=== PATIENT | male | born 1960 | race American Indian/Alaskan Native ===

== ENCOUNTER 2020-04-17 11:36 | Emergency (ER) | payer OTHER ==
[2020-04-17 11:50] VITALS: BP 178/110
--- NOTE | 2020-04-17 13:58 | XRay Report ---
LEFT SHOULDER 3 VIEWS INDICATION / CLINICAL INFORMATION: shoulder pain s/p fall. COMPARISON: None available. FINDINGS: BONES/JOINT(S): No acute fracture or subluxation. Mild DJD in the AC joint. No focal bone lesions. SOFT TISSUES: No significant abnormality. ADDITIONAL FINDINGS: None. Signer Name: Kaden Abad MD Signed: 04/17/2020 1:53 PM Workstation Name: [id number]
--- NOTE | 2020-04-17 14:09 | Emergency Department Report ---
ED Upper Extremity Inj HPI - General Chief Complaint: Shoulder Injury Stated Complaint: SHOULDER PAINS Time Seen by Provider: 04/17/20 12:19 Source: patient Mode of arrival: Ambulatory Limitations: No Limitations - History of Present Illness Initial Comments: This is a 59-year-old male nontoxic, well nourished in appearance, no acute signs of distress presents to the ED with c/o of left shoulder pain s/p fall 10 days ago. Patient denies any other trauma or injuries. Deneis any neck or back pains. Denies any LOC. Denies decreased ROM, joint swelling, redness, or abnormal gait. Denies any fever, chills, nausea, vomiting, headache, stiff neck, chest pain or shortness of breath. Patient denies any numbness or tingling. Denies any allergies. MD Complaint: Injury to:: left, shoulder -: days(s) (10) Other Extremity Injury: Shoulder: Left Other Injuries: none Severity scale (0 -10): 8 Improves With: immobilization Worsens With: movement of extremity Context: fall Associated Symptoms: denies other symptoms. denies: weakness, numbness, neck pain, suspects foreign body, nausea/vomiting, heard/felt popping sensat - Related Data Previous Rx's Medication Instructions Recorded Last Taken Type Naproxen 500 mg PO Q12H PRN #12 tablet 04/17/20 Unknown Rx Allergies Allergy/AdvReac Type Severity Reaction Status Date / Time No Known Allergies Allergy Unverified 04/17/20 11:49 ED Review of Systems ROS: Stated complaint: SHOULDER PAINS Other details as noted in HPI Constitutional: denies: chills, fever Eyes: denies: eye pain, eye discharge, vision change ENT: denies: ear pain, throat pain Respiratory: denies: cough, shortness of breath, wheezing Cardiovascular: denies: chest pain, palpitations Endocrine: no symptoms reported Gastrointestinal: denies: abdominal pain, nausea, diarrhea Genitourinary: denies: urgency, dysuria Musculoskeletal: denies: back pain, joint swelling, arthralgia Skin: denies: rash, lesions Neurological: denies: headache, weakness, paresthesias Psychiatric: denies: anxiety, depression Hematological/Lymphatic: denies: easy bleeding, easy bruising ED Past Medical Hx - Past Medical History Previous Medical History?: Yes Hx Hypertension: Yes - Surgical History Past Surgical History?: No - Social History Smoking Status: Current Every Day Smoker Substance Use Type: None - Medications Home Medications: Home Medications Medication Instructions Recorded Confirmed Last Taken Type Naproxen 500 mg PO Q12H PRN #12 tablet 04/17/20 Unknown Rx ED Physical Exam - General Limitations: No Limitations General appearance: alert, in no apparent distress - Head Head exam: Present: atraumatic, normocephalic - Eye Eye exam: Present: normal appearance - Neck Neck exam: Present: normal inspection, full ROM. Absent: tenderness, meningismus, lymphadenopathy - Respiratory Respiratory exam: Absent: respiratory distress - Cardiovascular Cardiovascular Exam: Present: regular rate - Extremities Exam Extremities exam: Present: normal inspection, full ROM, tenderness, normal capillary refill. Absent: joint swelling - Expanded Upper Extremity Exam Left General: Present: normal inspection Shoulder Exam: Present: normal inspection, full ROM, tenderness. Absent: swelling, abrasion, laceration, ecchymosis, deformity, crepidus, dislocation, erythema, tenderness over AC joint Upper Arm exam: Present: normal inspection, full ROM. Absent: tenderness, swelling Elbow exam: Present: normal inspection, full ROM. Absent: tenderness, swelling Forearm Wrist exam: Present: normal inspection, full ROM. Absent: tenderness, swelling Hand Wrist exam: Present: normal inspection, full ROM. Absent: tenderness, swelling Vascular: Present: normal capillary refill. Absent: vascular compromise (neurovascular intact) - Back Exam Back exam: Present: normal inspection, full ROM. Absent: tenderness, CVA tenderness (R), CVA tenderness (L), muscle spasm, paraspinal tenderness, vertebral tenderness, rash noted - Neurological Exam Neurological exam: Present: alert, oriented X3, normal gait - Psychiatric Psychiatric exam: Present: normal affect, normal mood - Skin Skin exam: Present: warm, dry, intact, normal color. Absent: rash ED Course Vital Signs 04/17/20 11:47 Temperature 98.0 F Pulse Rate 100 H Respiratory 18 Rate Blood Pressure 178/110 O2 Sat by Pulse 98 Oximetry - Reevaluation(s) Reevaluation #1: 04/17/20 14:10 Patient is speaking in full sentences with no signs of distress noted. ED Medical Decision Making - Medical Decision Making This is a 59-year-old male that presents with left shoulder strain. Patient is stable and was examined by me. Patient is notified of the xray results with on question noted by the patient. Pt received Shoulder sling. No joint effusion, no redness, no decreased ROM. Patient was instructed to Follow-up with a orthopedic doctor in 3-5 days or if symptoms worsen and continue return to emergency room as soon as possible. At time of discharge, the patient does not seem toxic or ill in appearance. No acute signs of distress noted. Patient agrees to discharge treatment plan of care. No further questions noted by the patient. Critical care attestation.: If time is entered above; I have spent that time in minutes in the direct care of this critically ill patient, excluding procedure time. ED Disposition Clinical Impression: Left shoulder strain Qualifiers: Encounter type: initial encounter Qualified Code(s): S46.912A - Strain of unspecified muscle, fascia and tendon at shoulder and upper arm level, left arm, initial encounter Disposition: TO HOME OR SELFCARE Is pt being admited?: No Does the pt Need Aspirin: No Condition: Stable Instructions: Shoulder Pain, RICE Therapy for Routine Care of Injuries, [id number] Additional Instructions: Follow-up with a orthopedic doctor in 3-5 days or if symptoms worsen and continue return to emergency room as soon as possible. No physical activity until cleared by orthopedic doctor. Prescriptions: Naproxen 500 mg PO Q12H PRN #12 tablet PRN Reason: Pain , Severe (7-10) Referrals: PRIMARY CARE, [Referring] - 3-5 Days ANDRES GRIFFIN MD [Staff Physician] - 3-5 Days Forms: Work/School Release Form(ED)
== END 2020-04-17 14:33 | disposition home or self-care (01) ==
LOC: ED 11:36
DX: S46.912A Strain of unspecified muscle, fascia and tendon at shoulder and upper arm level, left arm, initial encounter (principal); I10 Essential (primary) hypertension; F17.200 Nicotine dependence, unspecified, uncomplicated; X58.XXXA Exposure to other specified factors, initial encounter; Y93.89 Activity, other specified; Y92.89 Other specified places as the place of occurrence of the external cause; Y99.8 Other external cause status
CPT/HCPCS: 99283

== ENCOUNTER 2020-12-21 10:48 | Emergency (ER) | payer SELFPAY ==
--- NOTE | 2020-12-21 12:43 | Ultrasound Report ---
ULTRASOUND SCROTUM INDICATION: Unspecified testicular pain. Left scrotal enlargement. Palpable abnormality along the right groin. COMPARISON None available. FINDINGS: RIGHT TESTICLE: 4.3 x 1.8 x 2.8 cm. Normal echogenicity. Abnormally increased color flow is seen thro ughout the right testicle. No solid or cystic lesions. RIGHT EPIDIDYMIS: Enlarged and heterogeneous with abnormally increased color flow. No other significa nt abnormality. LEFT TESTICLE: 3.3 x 2.1 x 2.7 cm. Normal echogenicity. Normal color flow. No solid or cystic lesions . LEFT EPIDIDYMIS: Enlarged and heterogeneous with abnormally increased color flow. No other significan t abnormality. HYDROCELE: None seen. VARICOCELE: Varicoceles are noted bilaterally measuring up to 2.5 cm on the right and 3.5 cm on the l eft. ADDITIONAL FINDINGS: None. IMPRESSION: 1. Findings compatible with right epididymoorchitis and left epididymitis. 2. Bilateral varicoceles, left greater than right. Signer Name: Ephraim Milner MD Signed: 12/21/2020 12:38 PM Workstation Name: [id number]
[2020-12-21 12:58] LABS: Bacteria,Urine 4+ /HPF (Negative); Bilirubin,Urine NEG (Negative); Blood,Urine SM (Negative); Color,Urine Yellow (Yellow); Mucus,Urine 1+ /HPF; Protein,Urine <15 mg/dL mg/dL (Negative)
[2020-12-21] MEDS ORDERED: KETOROLAC 60 MG/2 ML INJ ONE (14:02)
[2020-12-21] MEDS ORDERED: LIDOCAINE-MPF (1%) 10 MG/1 ML VIAL 5 ML INFILTRATI ONE (14:40)
--- NOTE | 2020-12-21 14:47 | Emergency Department Report ---
<PHILLIP WEBB - Last Filed: 12/21/20 14:41> ED General Adult HPI - General Chief complaint: Urogenital-Male Stated complaint: SHOULDER INJURY Time Seen by Provider: 12/21/20 13:06 Source: patient Mode of arrival: Ambulatory Limitations: No Limitations - History of Present Illness Initial comments: 60-year-old -Burkin[place] male patient with history of asthma presents with complaints of sudden onset of left testicular pain and swelling with swollen lymph nodes in his groin area x2 days. He denies any dysuria/hematuria/urinary frequency, penile discharge, penile pain, or lesions. No abdominal pain per patient or fever/chills/sweats. He reports he is sexually active with one partner, his , however he does admit to anal sex with his . He denies any promiscuous sexual activity. Patient rates his current pain is 8/10 in severity. -: Sudden - Related Data Previous Rx's Medication Instructions Recorded Last Taken Type Naproxen 500 mg PO Q12H PRN #12 tablet 04/17/20 Unknown Rx Acetaminophen/Codeine [Tylenol 1 tab PO Q6H PRN #6 tab 12/21/20 Unknown Rx /Codeine # 3 tab] Ibuprofen [Motrin 800 MG tab] 800 mg PO Q8HR PRN #20 tablet 12/21/20 Unknown Rx levoFLOXacin [Levaquin TAB] 500 mg PO QDAY #10 tablet 12/21/20 Unknown Rx Allergies Allergy/AdvReac Type Severity Reaction Status Date / Time No Known Allergies Allergy Unverified 04/17/20 11:49 ED Review of Systems Constitutional: denies: chills, diaphoresis, fever, malaise, weakness Gastrointestinal: denies: abdominal pain Genitourinary: testicular pain. denies: urgency, dysuria, frequency, hematuria, discharge Musculoskeletal: denies: joint swelling, arthralgia ED Past Medical Hx - Past Medical History Previous Medical History?: Yes Hx Hypertension: Yes - Surgical History Past Surgical History?: Yes Hx Appendectomy: Yes - Social History Smoking Status: Current Every Day Smoker Substance Use Type: None - Medications Home Medications: Home Medications Medication Instructions Recorded Confirmed Last Taken Type Naproxen 500 mg PO Q12H PRN #12 tablet 04/17/20 Unknown Rx Acetaminophen/Codeine [Tylenol 1 tab PO Q6H PRN #6 tab 12/21/20 Unknown Rx /Codeine # 3 tab] Ibuprofen [Motrin 800 MG tab] 800 mg PO Q8HR PRN #20 tablet 12/21/20 Unknown Rx levoFLOXacin [Levaquin TAB] 500 mg PO QDAY #10 tablet 12/21/20 Unknown Rx ED Physical Exam - General Limitations: No Limitations General appearance: alert, in no apparent distress - Head Head exam: Present: atraumatic, normocephalic - Eye Eye exam: Present: normal appearance - Respiratory Respiratory exam: Absent: respiratory distress - Cardiovascular Cardiovascular Exam: Present: regular rate, normal rhythm - GI/Abdominal GI/Abdominal exam: Present: soft, normal bowel sounds. Absent: distended, tenderness, guarding, rebound, rigid - exam: Present: testicular tenderness (Left-sided), scrotal swelling (Left- sided, no erythema noted). Absent: other (No significant groin lymphadenopathy noted) - Extremities Exam Extremities exam: Present: full ROM. Absent: joint swelling - Back Exam Back exam: Present: normal inspection. Absent: CVA tenderness (R), CVA tenderness (L) - Neurological Exam Neurological exam: Present: alert, oriented X3 - Psychiatric Psychiatric exam: Present: normal affect, normal mood - Skin Skin exam: Present: warm, dry, intact, normal color. Absent: rash ED Medical Decision Making - Radiology Data Radiology results: report reviewed ULTRASOUND SCROTUM INDICATION: Unspecified testicular pain. Left scrotal enlargement. Palpable abnormality along the right groin. COMPARISON None available. FINDINGS: RIGHT TESTICLE: 4.3 x 1.8 x 2.8 cm. Normal echogenicity. Abnormally increased color flow is seen throughout the right testicle. No solid or cystic lesions. RIGHT EPIDIDYMIS: Enlarged and heterogeneous with abnormally increased color flow. No other significant abnormality. LEFT TESTICLE: 3.3 x 2.1 x 2.7 cm. Normal echogenicity. Normal color flow. No solid or cystic lesions. LEFT EPIDIDYMIS: Enlarged and heterogeneous with abnormally increased color flow. No other significant abnormality. HYDROCELE: None seen. VARICOCELE: Varicoceles are noted bilaterally measuring up to 2.5 cm on the right and 3.5 cm on the left. ADDITIONAL FINDINGS: None. IMPRESSION: 1. Findings compatible with right epididymoorchitis and left epididymitis. 2. Bilateral varicoceles, left greater than right. - Medical Decision Making 60-year-old -[place] male patient with history of asthma presents with complaints of sudden onset of left testicular pain and swelling with swollen lymph nodes in his groin area x2 days. He denies any dysuria/hematuria/urinary frequency, penile discharge, penile pain, or lesions. No abdominal pain per patient or fever/chills/sweats. He reports he is sexually active with one partner, his , however he does admit to anal sex with his . He denies any promiscuous sexual activity. Patient rates his current pain is 8/10 in severity. In addition, patient states he had negative STI testing done 1 week ago On exam, patient has left testicular swelling and pain. Urine shows 40 WBCs. Ultrasound shows right epididymoorchitis and left epididymitis. He is afebrile and nontachycardic. Given patient's history, will treat with IM Rocephin 500 mg and discharge home with Levaquin 500 mg. Recommend follow-up with urology in 3 days. Patient given referral for PCP also. He is well-appearing, his pain is controlled, he is stable for discharge home. Discussed in great detail signs and symptoms that should prompt immediate return to the emergency department in detail patient verbalizes understanding. ED Disposition Clinical Impression: Acute epididymitis, Epididymo-orchitis without abscess Disposition: DC-01 TO HOME OR SELFCARE Is pt being admited?: No Condition: Stable Instructions: Orchitis, Epididymitis, Epididymitis (ED) Prescriptions: levoFLOXacin [Levaquin TAB] 500 mg PO QDAY #10 tablet Ibuprofen [Motrin 800 MG tab] 800 mg PO Q8HR PRN #20 tablet PRN Reason: pain Acetaminophen/Codeine [Tylenol /Codeine # 3 tab] 1 tab PO Q6H PRN #6 tab PRN Reason: Pain , Severe (7-10) Referrals: CHRISTIANO ACOSTA MD [Staff Physician] - 2-3 Days [facility] [Provider Group] - 3-5 Days Forms: STI Treatment and Prevention <ORTIZ REID - Last Filed: 12/21/20 16:20> ED Review of Systems ROS: Stated complaint: SHOULDER INJURY Other details as noted in HPI ED Course Vital Signs 12/21/20 12/21/20 11:18 15:23 Temperature 99.3 F Pulse Rate 92 H 88 Respiratory 16 16 Rate Blood Pressure 160/93 Blood Pressure 136/82 [Left] O2 Sat by Pulse 97 Oximetry ED Medical Decision Making - Lab Data Vital Signs 12/21/20 12/21/20 11:18 15:23 Temperature 99.3 F Pulse Rate 92 H 88 Respiratory 16 16 Rate Blood Pressure 160/93 Blood Pressure 136/82 [Left] O2 Sat by Pulse 97 Oximetry Lab Results 12/21/20 Range/Units Unknown Urine Color Yellow (Yellow) Urine Turbidity Clear (Clear) Urine pH 6.0 (5.0-7.0) Ur Specific [place] 1.021 (1.003-1.030) Urine Protein <15 mg/dl (Negative) mg/dL Urine Glucose (UA) Neg (Negative) mg/dL Urine Ketones Neg (Negative) mg/dL Urine Blood Sm (Negative) Urine Nitrite Neg (Negative) Urine Bilirubin Neg (Negative) Urine Urobilinogen 2.0 (<2.0) mg/dL Ur Leukocyte Esterase Mod (Negative) Urine WBC (Auto) 40.0 H (0.0-6.0) /HPF Urine RBC (Auto) 11.0 (0.0-6.0) /HPF U Epithel Cells (Auto) 1.0 (0-13.0) /HPF Urine Bacteria (Auto) 4+ (Negative) /HPF Urine Mucus 1+ /HPF - Radiology Data Radiology results: report reviewed Critical care attestation.: If time is entered above; I have spent that time in minutes in the direct care of this critically ill patient, excluding procedure time. ED Disposition Is pt being admited?: No Does the pt Need Aspirin: No
[2020-12-21 15:24] VITALS: BP 136/82
== END 2020-12-21 15:23 | disposition home or self-care (01) ==
LOC: ED 10:48
DX: N45.1 Epididymitis (principal); N45.3 Epididymo-orchitis; I10 Essential (primary) hypertension; F17.200 Nicotine dependence, unspecified, uncomplicated; Z79.899 Other long term (current) drug therapy; Z90.49 Acquired absence of other specified parts of digestive tract
CPT/HCPCS: 81001; 87076; 87086; 87186; 93975; 96372; 99284; J0696; J1885

== ENCOUNTER 2021-01-04 16:01 | Emergency (ER) | payer SELFPAY ==
[2021-01-04] MEDS ORDERED: ALBUTEROL 2.5 MG/3 ML NEBU IH ONE (17:05)
[2021-01-04] MEDS ORDERED: MAGNESIUM SULFATE 2 GM/50 ML BAG IV ONE (17:05)
[2021-01-04] MEDS ORDERED: IPRATROPIUM 0.02% NEBU 2.5 ML IH ONE (17:05)
--- NOTE | 2021-01-04 17:11 | Emergency Department Report ---
ED Shortness of Breath HPI - General Chief Complaint: Adult Asthma Stated Complaint: ASTHMA/SOB Time Seen by Provider: 01/04/21 17:04 Source: patient Mode of arrival: Ambulatory Limitations: No Limitations - History of Present Illness Initial Comments: 60-year-old male, history of asthma, presents to ED with wheezing and shortness of breath. Patient states he has been having to use his inhaler the past week. States he has now run out of his inhaler. Patient reports cough, wheezing. He denies any fever. Patient states he has not received his COVID-19 vaccine. Patient reports he is a smoker. MD Complaint: "asthma attack" -: week(s) (1) Severity: moderate Consistency: constant Improves With: bronchodilators Worsens With: exertion Known History Of: asthma Associated Symptoms: cough Treatments Prior to Arrival: bronchodilator - Related Data Home Oxygen Therapy: No Previous Rx's Medication Instructions Recorded Last Taken Type Naproxen 500 mg PO Q12H PRN #12 tablet 04/17/20 Unknown Rx Acetaminophen/Codeine [Tylenol 1 tab PO Q6H PRN #6 tab 12/21/20 Unknown Rx /Codeine # 3 tab] Ibuprofen [Motrin 800 MG tab] 800 mg PO Q8HR PRN #20 tablet 12/21/20 Unknown Rx levoFLOXacin [Levaquin TAB] 500 mg PO QDAY #10 tablet 12/21/20 Unknown Rx Albuterol Sulfate [Proventil Hfa] 2 puff IH Q4HR PRN #1 hfa.aer.ad 01/04/21 Unknown Rx predniSONE [Deltasone] 50 mg PO QDAY #5 tab 01/04/21 Unknown Rx Allergies Allergy/AdvReac Type Severity Reaction Status Date / Time No Known Allergies Allergy Verified 01/04/21 16:18 ED Review of Systems ROS: Stated complaint: ASTHMA/SOB Other details as noted in HPI Comment: All other systems reviewed and negative Constitutional: denies: fever Respiratory: cough, shortness of breath, wheezing Cardiovascular: denies: chest pain ED Past Medical Hx - Past Medical History Hx Hypertension: Yes Hx Asthma: Yes - Surgical History Hx Appendectomy: Yes - Social History Smoking Status: Current Every Day Smoker Substance Use Type: None - Medications Home Medications: Home Medications Medication Instructions Recorded Confirmed Last Taken Type Naproxen 500 mg PO Q12H PRN #12 tablet 04/17/20 Unknown Rx Acetaminophen/Codeine [Tylenol 1 tab PO Q6H PRN #6 tab 12/21/20 Unknown Rx /Codeine # 3 tab] Ibuprofen [Motrin 800 MG tab] 800 mg PO Q8HR PRN #20 tablet 12/21/20 Unknown Rx levoFLOXacin [Levaquin TAB] 500 mg PO QDAY #10 tablet 12/21/20 Unknown Rx Albuterol Sulfate [Proventil Hfa] 2 puff IH Q4HR PRN #1 hfa.aer.ad 01/04/21 Unknown Rx predniSONE [Deltasone] 50 mg PO QDAY #5 tab 01/04/21 Unknown Rx ED Physical Exam - General Limitations: No Limitations General appearance: alert, in no apparent distress - Head Head exam: Present: atraumatic, normocephalic - Eye Eye exam: Present: normal appearance, EOMI - ENT ENT exam: Present: mucous membranes moist - Neck Neck exam: Present: normal inspection - Respiratory Respiratory exam: Present: wheezes (Scant), decreased breath sounds - Cardiovascular Cardiovascular Exam: Present: normal rhythm, tachycardia - GI/Abdominal GI/Abdominal exam: Present: soft. Absent: distended, tenderness - Extremities Exam Extremities exam: Present: normal inspection - Neurological Exam Neurological exam: Present: alert, oriented X3 - Psychiatric Psychiatric exam: Present: normal affect, normal mood - Skin Skin exam: Present: warm, dry, intact, normal color ED Course Vital Signs 01/04/21 01/04/21 16:21 18:47 Temperature 98.8 F Pulse Rate 105 H 74 Respiratory 20 16 Rate Blood Pressure 129/111 Blood Pressure 168/92 [Left] O2 Sat by Pulse 96 94 Oximetry ED Medical Decision Making - Radiology Data Radiology results: report reviewed, image reviewed - Medical Decision Making 60-year-old male presents to ED with acute asthma exacerbation. Patient given nebulizer treatment, Solu-Medrol, magnesium sulfate. Following treatment resolved, patient is feeling much better. Chest x-ray is negative for any acute findings. Patient will be discharged at this time with prescriptions. Outpatient follow-up advised, return precautions given. - Differential Diagnosis Asthma, pneumonia, pulmonary edema Critical care attestation.: If time is entered above; I have spent that time in minutes in the direct care of this critically ill patient, excluding procedure time. ED Disposition Clinical Impression: Acute asthma exacerbation Disposition: DC-01 TO HOME OR SELFCARE Is pt being admited?: No Condition: Stable Instructions: Asthma, Adult, [id number] Prescriptions: predniSONE [Deltasone] 50 mg PO QDAY #5 tab Albuterol Sulfate [Proventil Hfa] 2 puff IH Q4HR PRN #1 hfa.aer.ad PRN Reason: Wheezing Referrals: PRIMARY CARE, [Primary Care Provider] - 3-5 Days Forms: Work/School Release Form(ED) Time of Disposition: 18:32
[2021-01-04] MEDS: methylPREDNISolone Sod Succinate 125 MG/2 ML INJ IV ONE ×2 (17:33→17:39)
--- NOTE | 2021-01-04 18:20 | XRay Report ---
CHEST 1 VIEW 01/04/2021 5:13 PM INDICATION / CLINICAL INFORMATION: sob. COMPARISON: None available. FINDINGS: SUPPORT DEVICES: None. HEART / MEDIASTINUM: No significant abnormality. LUNGS / PLEURA: No significant pulmonary or pleural abnormality. No pneumothorax. ADDITIONAL FINDINGS: No significant additional findings. IMPRESSION: No acute abnormality. Signer Name: He Enriquez MD Signed: 01/04/2021 6:15 PM Workstation Name: [id number]
[2021-01-04 18:48] VITALS: BP 168/92
== END 2021-01-04 18:48 | disposition home or self-care (01) ==
LOC: ED 16:01
DX: J45.901 Unspecified asthma with (acute) exacerbation (principal); F17.200 Nicotine dependence, unspecified, uncomplicated
CPT/HCPCS: 71045; 96365; 96375; 99283; J2930; J3475

== ENCOUNTER 2021-08-17 01:42 | Emergency (ER) | payer SELFPAY ==
[2021-08-17] MEDS ORDERED: IPRATROPIUM/ALBUTEROL SULFATE 3 ML AMPUL.NEB IH ONE (02:07)
[2021-08-17] MEDS ORDERED: predniSONE 20 MG TAB PO ONE (02:07)
--- NOTE | 2021-08-17 02:53 | Emergency Department Report ---
ED General Adult HPI - General Chief complaint: Dyspnea/Respdistress Stated complaint: SOB Time Seen by Provider: 08/17/21 02:06 Source: patient Mode of arrival: Ambulatory Limitations: No Limitations - History of Present Illness Initial comments: Patient 60-year-old male with history of asthma who presents for a wheezing x2 days. Patient states out of albuterol and Symbicort inhalers. Patient denies chest pain there is no nausea no vomiting no dizziness no lightheadedness no fevers or chills. 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 Patient requesting neb treatment and medication refill until follow-up appointment with primary care doctor. Rates his symptoms at 3/10 for asthma. Patient drove self to ED patient is alert oriented x3 patient is amatory with steady gait ,patient SOB at this time, and is in no distress at this time. Severity scale (0 -10): 6 - Related Data Previous Rx's Medication Instructions Recorded Last Taken Type Naproxen 500 mg PO Q12H PRN #12 tablet 04/17/20 Unknown Rx Acetaminophen/Codeine [Tylenol 1 tab PO Q6H PRN #6 tab 12/21/20 Unknown Rx /Codeine # 3 tab] Ibuprofen [Motrin 800 MG tab] 800 mg PO Q8HR PRN #20 tablet 12/21/20 Unknown Rx levoFLOXacin [Levaquin TAB] 500 mg PO QDAY #10 tablet 12/21/20 Unknown Rx Albuterol Sulfate [Proventil Hfa] 2 puff IH Q4HR PRN #1 hfa.aer.ad 01/04/21 Unknown Rx predniSONE [Deltasone] 50 mg PO QDAY #5 tab 01/04/21 Unknown Rx Albuterol Mdi (or & Nicu Only) 2 puff IH QID PRN #8.5 gram 08/17/21 Unknown Rx [ProAir HFA Inhaler] Budesonide/Formoterol Fumarate 10.2 gm IH BID #1 unit 08/17/21 Unknown Rx [Symbicort 160-4.5 Mcg Inhaler] predniSONE [Deltasone] 40 mg PO QDAY 5 Days #10 tab 08/17/21 Unknown Rx Allergies Allergy/AdvReac Type Severity Reaction Status Date / Time No Known Allergies Allergy Verified 01/04/21 16:18 ED Review of Systems ROS: Stated complaint: SOB Other details as noted in HPI Constitutional: denies: chills, fever Eyes: denies: eye pain, eye discharge, vision change ENT: denies: ear pain, throat pain Respiratory: cough, shortness of breath, wheezing Cardiovascular: denies: chest pain, palpitations, syncope, paroxysmal nocturnal dyspnea Endocrine: no symptoms reported Gastrointestinal: denies: abdominal pain, nausea, vomiting, diarrhea Genitourinary: as per HPI Musculoskeletal: denies: back pain, joint swelling, arthralgia Skin: denies: rash, lesions Neurological: denies: headache, weakness, paresthesias, vertigo Psychiatric: denies: anxiety, depression Hematological/Lymphatic: denies: easy bleeding, easy bruising ED Past Medical Hx - Past Medical History Hx Hypertension: Yes Hx Asthma: Yes - Surgical History Hx Appendectomy: Yes - Social History Smoking Status: Current Every Day Smoker Substance Use Type: None - Medications Home Medications: Home Medications Medication Instructions Recorded Confirmed Last Taken Type Naproxen 500 mg PO Q12H PRN #12 tablet 04/17/20 Unknown Rx Acetaminophen/Codeine [Tylenol 1 tab PO Q6H PRN #6 tab 12/21/20 Unknown Rx /Codeine # 3 tab] Ibuprofen [Motrin 800 MG tab] 800 mg PO Q8HR PRN #20 tablet 12/21/20 Unknown Rx levoFLOXacin [Levaquin TAB] 500 mg PO QDAY #10 tablet 12/21/20 Unknown Rx Albuterol Sulfate [Proventil Hfa] 2 puff IH Q4HR PRN #1 hfa.aer.ad 01/04/21 Unknown Rx predniSONE [Deltasone] 50 mg PO QDAY #5 tab 01/04/21 Unknown Rx Albuterol Mdi (or & Nicu Only) 2 puff IH QID PRN #8.5 gram 08/17/21 Unknown Rx [ProAir HFA Inhaler] Budesonide/Formoterol Fumarate 10.2 gm IH BID #1 unit 08/17/21 Unknown Rx [Symbicort 160-4.5 Mcg Inhaler] predniSONE [Deltasone] 40 mg PO QDAY 5 Days #10 tab 08/17/21 Unknown Rx ED Physical Exam - General Limitations: No Limitations General appearance: alert, in no apparent distress - Head Head exam: Present: normocephalic, normal inspection - Eye Eye exam: Present: normal appearance, PERRL, EOMI Pupils: Present: normal accommodation - ENT ENT exam: Present: normal orophraynx, mucous membranes moist, TM's normal bilaterally, normal external ear exam - Respiratory Respiratory exam: Present: wheezes (Bilateral expiratory wheezes upper lobes.). Absent: rales, rhonchi, stridor, chest wall tenderness - Cardiovascular Cardiovascular Exam: Present: regular rate, normal rhythm, normal heart sounds. Absent: systolic murmur, diastolic murmur, rubs, gallop - GI/Abdominal GI/Abdominal exam: Present: soft, normal bowel sounds. Absent: distended, tenderness - Rectal Rectal exam: Present: deferred - Extremities Exam Extremities exam: Present: normal inspection, full ROM, normal capillary refill. Absent: tenderness - Back Exam Back exam: Present: normal inspection, full ROM. Absent: CVA tenderness (R), CVA tenderness (L) - Neurological Exam Neurological exam: Present: alert, oriented X3, CN II-XII intact - Expanded Neurological Exam Expanded Patient oriented to: Present: person, place, time Speech: Present: fluid speech Best Eye Response ([place]): (4) open spontaneously Best Motor Response ([place]): (6) obeys commands Best Verbal Response ([place]): (5) oriented [place] Total: 15 - Psychiatric Psychiatric exam: Present: normal affect, normal mood - Skin Skin exam: Present: warm, dry, intact, normal color. Absent: rash ED Course Vital Signs 08/17/21 01:46 Temperature 98.1 F Pulse Rate 98 H Respiratory 20 Rate Blood Pressure 182/93 [Right] O2 Sat by Pulse 96 Oximetry ED Medical Decision Making - Medical Decision Making Lung sounds much improved after neb treatment given in ED. Patient has ambulated from room to the restroom and returned to room without wheezing or increased shortness of breath. Patient states breathing is at baseline at this time. Patient will be DC'd home in stable condition. Will refill prescriptions as requested. Patient will follow with primary care doctor in 2 to 3 days. Patient verbalized agreement and understanding with discharge plan. Patient DC'd home in stable condition at this time. Critical care attestation.: If time is entered above; I have spent that time in minutes in the direct care of this critically ill patient, excluding procedure time. ED Disposition Clinical Impression: Asthma Qualifiers: Asthma severity: mild Asthma persistence: intermittent Asthma complication type: unspecified Qualified Code(s): J45.20 - Mild intermittent asthma, uncomplicated Disposition: 01 HOME / SELF CARE / HOMELESS Is pt being admited?: No Does the pt Need Aspirin: No Condition: Stable Instructions: Asthma (ED), Asthma, Adult, Asthma Attack Prevention, Adult Additional Instructions: Take medications as prescribed. Follow-up with your doctor in 2 to 3 days. Return to emergency department should symptoms worsen. Prescriptions: predniSONE [Deltasone] 40 mg PO QDAY 5 Days #10 tab Albuterol Mdi (or & Nicu Only) [ProAir HFA Inhaler] 2 puff IH QID PRN #8.5 gram PRN Reason: Shortness Of Breath Budesonide/Formoterol Fumarate [Symbicort 160-4.5 Mcg Inhaler] 10.2 gm IH BID #1 unit Referrals: KEENA CHOUDHARY MD [Staff Physician] - 3-5 Days Time of Disposition: 03:00
[2021-08-17 04:09] VITALS: BP 182/93
--- NOTE | 2021-08-17 09:22 | Electrocardiograph Report ---
[facility] Test Date: 2021-08-17 Test Time: 01:53:56 Pat Name: ELVIS BLAKELY Department: Room: Gender: M [employer]: VENUS : 1960 Requested By: ORTIZ REID Order Number: [id number] Reading MD: Marlon Prabhakar Measurements Intervals [place] Rate: 101 P: 84 AL: 162 QRS: 82 QRSD: 104 T: 18 QT: 361 QTc: 468 Interpretive Statements Sinus tachycardia nonspecific st-t No previous ECG available for comparison Electronically Signed On 08-17-2021 9:21:45 EST by Marlon Prabhakar
== END 2021-08-17 10:57 | disposition home or self-care (01) ==
LOC: ED 01:42
DX: J45.909 Unspecified asthma, uncomplicated (principal); I10 Essential (primary) hypertension; F17.200 Nicotine dependence, unspecified, uncomplicated; Z79.899 Other long term (current) drug therapy
CPT/HCPCS: 93005; 94640; 99283

== ENCOUNTER 2021-11-01 15:22 | Emergency (ER) | payer MEDICAID, OTHER ==
[2021-11-01] MEDS ORDERED: ALBUTEROL 2.5 MG/3 ML NEBU IH ONE ×2 (15:44→18:57)
--- NOTE | 2021-11-01 18:17 | Emergency Department Report ---
ED Shortness of Breath HPI - General Chief Complaint: Adult Asthma Stated Complaint: ASTHMA Time Seen by Provider: 11/01/21 18:06 Source: patient Mode of arrival: Ambulatory Limitations: No Limitations - History of Present Illness Initial Comments: Patient is 61 years old male with history of asthma and hypertension. Patient stated that he ran out of his medication. Patient presented to the ER complaining of shortness of breath and wheezing. Patient also found to have a blood pressure of 200/120. Patient denies any chest pain, fever or chills. MD Complaint: shortness of breath, cough -: days(s) Known History Of: asthma Associated Symptoms: denies other symptoms Treatments Prior to Arrival: none - Related Data Previous Rx's Medication Instructions Recorded Last Taken Type Naproxen 500 mg PO Q12H PRN #12 tablet 04/17/20 Unknown Rx Acetaminophen/Codeine [Tylenol 1 tab PO Q6H PRN #6 tab 12/21/20 Unknown Rx /Codeine # 3 tab] Ibuprofen [Motrin 800 MG tab] 800 mg PO Q8HR PRN #20 tablet 12/21/20 Unknown Rx levoFLOXacin [Levaquin TAB] 500 mg PO QDAY #10 tablet 12/21/20 Unknown Rx Albuterol Sulfate [Proventil Hfa] 2 puff IH Q4HR PRN #1 hfa.aer.ad 01/04/21 Unknown Rx predniSONE [Deltasone] 50 mg PO QDAY #5 tab 01/04/21 Unknown Rx Albuterol Mdi (or & Nicu Only) 2 puff IH QID PRN #8.5 gram 08/17/21 Unknown Rx [ProAir HFA Inhaler] Budesonide/Formoterol Fumarate 10.2 gm IH BID #1 unit 08/17/21 Unknown Rx [Symbicort 160-4.5 Mcg Inhaler] predniSONE [Deltasone] 40 mg PO QDAY 5 Days #10 tab 08/17/21 Unknown Rx Albuterol Mdi (or & Nicu Only) 2 puff IH QID PRN #1 inhalation 11/01/21 Unknown Rx [ProAir HFA Inhaler] Budesonide/Formoterol Fumarate 10.2 gm IH BID #1 11/01/21 Unknown Rx [Symbicort 160-4.5 Mcg Inhaler] Prednisone [predniSONE 10 mg 10 mg PO .TAPER #1 tab.ds.pk 11/01/21 Unknown Rx (6-Day Pack, 21 Tabs)] amLODIPine [Norvasc] 5 mg PO DAILY #30 tab 11/01/21 Unknown Rx Allergies Allergy/AdvReac Type Severity Reaction Status Date / Time No Known Allergies Allergy Verified 11/01/21 15:33 ED Review of Systems ROS: Stated complaint: ASTHMA Other details as noted in HPI Comment: All other systems reviewed and negative Constitutional: denies: chills, fever Respiratory: shortness of breath, SOB with exertion, SOB at rest, wheezing. denies: cough Cardiovascular: denies: chest pain, palpitations Gastrointestinal: denies: abdominal pain, nausea, vomiting, diarrhea, constipation, hematemesis Musculoskeletal: denies: back pain ED Past Medical Hx - Past Medical History Hx Hypertension: Yes Hx Asthma: Yes - Surgical History Hx Appendectomy: Yes - Social History Smoking Status: Current Every Day Smoker Substance Use Type: None - Medications Home Medications: Home Medications Medication Instructions Recorded Confirmed Last Taken Type Naproxen 500 mg PO Q12H PRN #12 tablet 04/17/20 Unknown Rx Acetaminophen/Codeine [Tylenol 1 tab PO Q6H PRN #6 tab 12/21/20 Unknown Rx /Codeine # 3 tab] Ibuprofen [Motrin 800 MG tab] 800 mg PO Q8HR PRN #20 tablet 12/21/20 Unknown Rx levoFLOXacin [Levaquin TAB] 500 mg PO QDAY #10 tablet 12/21/20 Unknown Rx Albuterol Sulfate [Proventil Hfa] 2 puff IH Q4HR PRN #1 hfa.aer.ad 01/04/21 Unknown Rx predniSONE [Deltasone] 50 mg PO QDAY #5 tab 01/04/21 Unknown Rx Albuterol Mdi (or & Nicu Only) 2 puff IH QID PRN #8.5 gram 08/17/21 Unknown Rx [ProAir HFA Inhaler] Budesonide/Formoterol Fumarate 10.2 gm IH BID #1 unit 08/17/21 Unknown Rx [Symbicort 160-4.5 Mcg Inhaler] predniSONE [Deltasone] 40 mg PO QDAY 5 Days #10 tab 08/17/21 Unknown Rx Albuterol Mdi (or & Nicu Only) 2 puff IH QID PRN #1 inhalation 11/01/21 Unknown Rx [ProAir HFA Inhaler] Budesonide/Formoterol Fumarate 10.2 gm IH BID #1 11/01/21 Unknown Rx [Symbicort 160-4.5 Mcg Inhaler] Prednisone [predniSONE 10 mg 10 mg PO .TAPER #1 tab.ds.pk 11/01/21 Unknown Rx (6-Day Pack, 21 Tabs)] amLODIPine [Norvasc] 5 mg PO DAILY #30 tab 11/01/21 Unknown Rx ED Physical Exam - General Limitations: No Limitations General appearance: alert, in no apparent distress - Head Head exam: Present: atraumatic, normocephalic - Eye Eye exam: Present: normal appearance - ENT ENT exam: Present: normal exam, normal orophraynx, mucous membranes moist - Neck Neck exam: Present: normal inspection, full ROM. Absent: tenderness, meningis mus - Respiratory Respiratory exam: Present: wheezes, decreased breath sounds, prolonged expiratory. Absent: respiratory distress, rales, rhonchi - Cardiovascular Cardiovascular Exam: Present: regular rate, normal rhythm, normal heart sounds - GI/Abdominal GI/Abdominal exam: Present: soft, normal bowel sounds. Absent: distended, tenderness, guarding, rebound, rigid, organomegaly, mass, bruit, pulsatile mass, hernia - Extremities Exam Extremities exam: Present: normal inspection, full ROM, normal capillary refill. Absent: tenderness, pedal edema, joint swelling, calf tenderness - Back Exam Back exam: Present: normal inspection, full ROM. Absent: CVA tenderness (R), CVA tenderness (L) - Neurological Exam Neurological exam: Present: alert, oriented X3, CN II-XII intact - Psychiatric Psychiatric exam: Present: normal mood - Skin Skin exam: Present: warm, intact, normal color ED Course Vital Signs 11/01/21 11/01/21 11/01/21 15:30 18:34 19:44 Temperature 99 F Pulse Rate 102 H 88 Pulse Rate [ 75 Bilateral] Respiratory 20 18 Rate Respiratory 16 Rate [Bilateral ] Blood Pressure 145/91 [Left] Blood Pressure 200/120 [Right] O2 Sat by Pulse 94 94 Oximetry ED Medical Decision Making - Lab Data Result diagrams: 11/01/21 18:21 11/01/21 18:21 - Radiology Data Radiology results: report reviewed - Medical Decision Making Patient is 61 years old male with history of asthma and hypertension. Patient stated that he ran out of his medication. Patient presented to the ER complaining of shortness of breath and wheezing. Patient also found to have a blood pressure of 200/120. Patient denies any chest pain, fever or chills. Patient received albuterol, Atrovent and Solu-Medrol. Patient stated that he is feeling much better. Blood pressure improved to 145/82. Chest x-ray is unremarkable. Labs reviewed and is unremarkable. Patient given prescription for albuterol, prednisone and Norvasc. Patient advised to follow-up with his primary care physician in the next 2 to 3 days and to return to the ER if he develop any new symptoms. Critical care attestation.: If time is entered above; I have spent that time in minutes in the direct care of this critically ill patient, excluding procedure time. ED Disposition Clinical Impression: Acute asthma exacerbation, Malignant hypertension Disposition: 01 HOME / SELF CARE / HOMELESS Is pt being admited?: No Condition: Stable Instructions: Asthma Attack Prevention, Adult, Hypertension, Adult, Hypertension (ED) Prescriptions: amLODIPine [Norvasc] 5 mg PO DAILY #30 tab Prednisone [predniSONE 10 mg (6-Day Pack, 21 Tabs)] 10 mg PO .TAPER #1 tab.ds.pk Albuterol Mdi (or & Nicu Only) [ProAir HFA Inhaler] 2 puff IH QID PRN #1 inhalation PRN Reason: Shortness Of Breath Budesonide/Formoterol Fumarate [Symbicort 160-4.5 Mcg Inhaler] 10.2 gm IH BID #1 Referrals: [facility] [Provider Group] - 3-5 Days Forms: Work/School Release Form(ED)
--- NOTE | 2021-11-01 18:31 | XRay Report ---
CHEST 1 VIEW 11/01/2021 6:10 PM INDICATION / CLINICAL INFORMATION: Dyspnea. COMPARISON: 01/04/2021 FINDINGS: SUPPORT DEVICES: None. HEART / MEDIASTINUM: No significant abnormality. LUNGS / PLEURA: No significant pulmonary or pleural abnormality. No pneumothorax. ADDITIONAL FINDINGS: No significant additional findings. IMPRESSION: 1. No acute findings. Signer Name: Kaden Abad MD Signed: 11/01/2021 6:26 PM Workstation Name: [id number]
[2021-11-01 18:52] LABS: Basophils % (Auto) 0.7 % (0.0-1.8); Eosinophils # (Auto) 0.5 K/mm3 (0.0-0.4); Eosinophils % (Auto) 9.5 % (0.0-4.3); Hematocrit 43.6 % (35.5-45.6); Hemoglobin 14.5 gm/dl (11.8-15.2); Lymphocytes % (Auto) 39.3 % (13.4-35.0); Mean Corpuscular HGB Conc 33 % (32-34); Mean Corpuscular Volume 91 fl (84-94); Monocytes # (Auto) 0.4 K/mm3 (0.0-0.8); Monocytes % (Auto) 7.7 % (0.0-7.3); Platelet Count 250 K/mm3 (140-440); Red Cell Distribution Width 13.9 % (13.2-15.2)
[2021-11-01 18:55] LABS: BUN/Creatinine Ratio 20; Blood Urea Nitrogen 18 mg/dL (9-20); Calcium 9.7 mg/dL (8.4-10.2); Hemolysis Index 7
[2021-11-01 18:57] LABS: Alanine Aminotransferase 14 units/L (7-56); Albumin 4.5 g/dL (3.9-5)
[2021-11-01] MEDS ORDERED: IPRATROPIUM 0.02% NEBU 2.5 ML IH ONE (18:57)
[2021-11-01] MEDS ORDERED: methylPREDNISolone Sod Succinate 125 MG/2 ML INJ IM ONE (18:57)
[2021-11-01 18:59] LABS: Bilirubin,Direct < 0.2 mg/dL (0-0.2); INR 0.83 (0.87-1.13)
[2021-11-01 19:00] LABS: Partial Thromboplastin Time 26.4 Sec. (24.2-36.6)
[2021-11-01 20:38] VITALS: BP 157/99
== END 2021-11-01 20:37 | disposition home or self-care (01) ==
LOC: ED 15:22
DX: J45.901 Unspecified asthma with (acute) exacerbation (principal); I10 Essential (primary) hypertension; Z90.89 Acquired absence of other organs; Z98.890 Other specified postprocedural states
CPT/HCPCS: 36415; 71045; 80048; 80076; 83880; 84484; 85025; 85610; 85730; 93005; 94640; 96372; 99284; J2930; 94644

== ENCOUNTER 2021-11-17 06:35 | Emergency (ER) | payer OTHER ==
[2021-11-17 07:11] VITALS: BP 177/107
[2021-11-17] MEDS ORDERED: IPRATROPIUM 0.02% NEBU 2.5 ML IH ONE (09:46)
[2021-11-17] MEDS ORDERED: ALBUTEROL 2.5 MG/3 ML NEBU IH ONE (09:46)
[2021-11-17] MEDS ORDERED: dexAMETHasone 20 MG/5 ML VIAL IM ONE (09:46)
--- NOTE | 2021-11-17 10:15 | Emergency Department Report ---
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 States he is out of albuterol inhaler. Patient denies chest pain however asthma symptoms are rated at 5/10 for usual asthma attack. Wheezing is audible coughing productive clear. Patient denies chest pain there is no nausea no vomiting no dizziness or lightheadedness. Patient drove self to ED and patient is ambulatory patient speaking in full sentences. Severity scale (0 -10): 0 - Related Data Previous Rx's Medication Instructions Recorded Last Taken Type Naproxen 500 mg PO Q12H PRN #12 tablet 04/17/20 Unknown Rx Acetaminophen/Codeine [Tylenol 1 tab PO Q6H PRN #6 tab 12/21/20 Unknown Rx /Codeine # 3 tab] Ibuprofen [Motrin 800 MG tab] 800 mg PO Q8HR PRN #20 tablet 12/21/20 Unknown Rx levoFLOXacin [Levaquin TAB] 500 mg PO QDAY #10 tablet 12/21/20 Unknown Rx Albuterol Sulfate [Proventil Hfa] 2 puff IH Q4HR PRN #1 hfa.aer.ad 01/04/21 Unknown Rx predniSONE [Deltasone] 50 mg PO QDAY #5 tab 01/04/21 Unknown Rx Albuterol Mdi (or & Nicu Only) 2 puff IH QID PRN #8.5 gram 08/17/21 Unknown Rx [ProAir HFA Inhaler] Budesonide/Formoterol Fumarate 10.2 gm IH BID #1 unit 08/17/21 Unknown Rx [Symbicort 160-4.5 Mcg Inhaler] predniSONE [Deltasone] 40 mg PO QDAY 5 Days #10 tab 08/17/21 Unknown Rx Albuterol Mdi (or & Nicu Only) 2 puff IH QID PRN #1 inhalation 11/01/21 Unknown Rx [ProAir HFA Inhaler] Budesonide/Formoterol Fumarate 10.2 gm IH BID #1 11/01/21 Unknown Rx [Symbicort 160-4.5 Mcg Inhaler] Prednisone [predniSONE 10 mg 10 mg PO .TAPER #1 tab.ds.pk 11/01/21 Unknown Rx (6-Day Pack, 21 Tabs)] amLODIPine [Norvasc] 5 mg PO DAILY #30 tab 11/01/21 Unknown Rx Albuterol Mdi (or & Nicu Only) 2 puff IH QID PRN #8.5 gram 11/17/21 Unknown Rx [ProAir HFA Inhaler] predniSONE [Deltasone] 40 mg PO QDAY 5 Days #10 tab 11/17/21 Unknown Rx Allergies Allergy/AdvReac Type Severity Reaction Status Date / Time No Known Allergies Allergy Verified 11/01/21 15:33 ED Review of Systems ROS: Stated complaint: ASTHMA/SOB Other details as noted in HPI Constitutional: denies: chills, fever Eyes: denies: eye pain, eye discharge, vision change ENT: congestion. denies: ear pain, throat pain Respiratory: cough, shortness of breath, wheezing Cardiovascular: denies: chest pain, palpitations Endocrine: no symptoms reported Gastrointestinal: denies: abdominal pain, nausea, diarrhea Genitourinary: denies: urgency, dysuria Musculoskeletal: denies: back pain, joint swelling, arthralgia Skin: denies: rash, lesions Neurological: denies: headache, weakness, numbness, paresthesias, vertigo Psychiatric: denies: anxiety, depression Hematological/Lymphatic: denies: easy bleeding, easy bruising ED Past Medical Hx - Past Medical History Hx Hypertension: Yes Hx Asthma: Yes - Surgical History Hx Appendectomy: Yes - Social History Smoking Status: Current Every Day Smoker Substance Use Type: None - Medications Home Medications: Home Medications Medication Instructions Recorded Confirmed Last Taken Type Naproxen 500 mg PO Q12H PRN #12 tablet 04/17/20 Unknown Rx Acetaminophen/Codeine [Tylenol 1 tab PO Q6H PRN #6 tab 12/21/20 Unknown Rx /Codeine # 3 tab] Ibuprofen [Motrin 800 MG tab] 800 mg PO Q8HR PRN #20 tablet 12/21/20 Unknown Rx levoFLOXacin [Levaquin TAB] 500 mg PO QDAY #10 tablet 12/21/20 Unknown Rx Albuterol Sulfate [Proventil Hfa] 2 puff IH Q4HR PRN #1 hfa.aer.ad 01/04/21 Unknown Rx predniSONE [Deltasone] 50 mg PO QDAY #5 tab 01/04/21 Unknown Rx Albuterol Mdi (or & Nicu Only) 2 puff IH QID PRN #8.5 gram 08/17/21 Unknown Rx [ProAir HFA Inhaler] Budesonide/Formoterol Fumarate 10.2 gm IH BID #1 unit 08/17/21 Unknown Rx [Symbicort 160-4.5 Mcg Inhaler] predniSONE [Deltasone] 40 mg PO QDAY 5 Days #10 tab 08/17/21 Unknown Rx Albuterol Mdi (or & Nicu Only) 2 puff IH QID PRN #1 inhalation 11/01/21 Unknown Rx [ProAir HFA Inhaler] Budesonide/Formoterol Fumarate 10.2 gm IH BID #1 11/01/21 Unknown Rx [Symbicort 160-4.5 Mcg Inhaler] Prednisone [predniSONE 10 mg 10 mg PO .TAPER #1 tab.ds.pk 11/01/21 Unknown Rx (6-Day Pack, 21 Tabs)] amLODIPine [Norvasc] 5 mg PO DAILY #30 tab 11/01/21 Unknown Rx Albuterol Mdi (or & Nicu Only) 2 puff IH QID PRN #8.5 gram 11/17/21 Unknown Rx [ProAir HFA Inhaler] predniSONE [Deltasone] 40 mg PO QDAY 5 Days #10 tab 11/17/21 Unknown Rx ED Physical Exam - General Limitations: No Limitations General appearance: alert, in no apparent distress - Head Head exam: Present: normocephalic, normal inspection - Eye Eye exam: Present: normal appearance, EOMI Pupils: Present: normal accommodation - ENT ENT exam: Present: mucous membranes moist - Neck Neck exam: Present: normal inspection, full ROM. Absent: tenderness, lymphadenopathy - Respiratory Respiratory exam: Present: wheezes. Absent: respiratory distress, rales, rhonchi, stridor, chest wall tenderness - Cardiovascular Cardiovascular Exam: Present: regular rate, normal rhythm, normal heart sounds. Absent: systolic murmur, diastolic murmur, rubs, gallop - GI/Abdominal GI/Abdominal exam: Present: soft, normal bowel sounds. Absent: distended, tenderness - Rectal Rectal exam: Present: deferred - Extremities Exam Extremities exam: Present: normal inspection, full ROM, normal capillary refill - Back Exam Back exam: Present: normal inspection, full ROM. Absent: CVA tenderness (R), CVA tenderness (L) - Neurological Exam Neurological exam: Present: alert, oriented X3, CN II-XII intact, normal gait - Expanded Neurological Exam Expanded Patient oriented to: Present: person, place, time Speech: Present: fluid speech Best Eye Response ([place]): (4) open spontaneously Best Motor Response ([place]): (6) obeys commands Best Verbal Response ([place]): (5) oriented [place] Total: 15 - Psychiatric Psychiatric exam: Present: normal affect, normal mood - Skin Skin exam: Present: warm, dry, intact, normal color. Absent: rash ED Course Vital Signs 11/17/21 07:06 Pulse Rate 94 H Respiratory 20 Rate Blood Pressure 177/107 [Right] O2 Sat by Pulse 94 Oximetry ED Medical Decision Making - Medical Decision Making Wheezing is resolved at this time. Patient has ambulated from room to bathroom and back to room without increased shortness of breath or wheezing. Patient states breathing is at baseline. Plan DC to home, refill albuterol inhaler. Follow-up with primary care doctor in 2 to 3 days. Return to emergency department should symptoms worsen. Patient verbalizes agreement and understanding of discharge plan. Patient DC'd home in stable condition at this time. Critical care attestation.: If time is entered above; I have spent that time in minutes in the direct care of this critically ill patient, excluding procedure time. ED Disposition Clinical Impression: Asthma Qualifiers: Asthma severity: moderate Asthma persistence: unspecified Asthma complication type: unspecified Qualified Code(s): J45.909 - Unspecified asthma, uncomplicated Disposition: HOME / SELF CARE / HOMELESS Is pt being admited?: No Does the pt Need Aspirin: No Condition: Stable Instructions: Asthma (ED), Asthma, Adult, Asthma Attack Prevention, Adult Additional Instructions: Take medications as prescribed, follow-up with your doctor in 2 to 3 days. Return to emergency department should symptoms worsen. Prescriptions: predniSONE [Deltasone] 40 mg PO QDAY 5 Days #10 tab Albuterol Mdi (or & Nicu Only) [ProAir HFA Inhaler] 2 puff IH QID PRN #8.5 gram PRN Reason: Shortness Of Breath Referrals: HENRIQUE DIEGO MD [Staff Physician] - 3-5 Days Forms: Work/School Release Form(ED) Time of Disposition: 11:34
== END 2021-11-17 11:58 | disposition home or self-care (01) ==
LOC: ED 06:35
DX: J45.909 Unspecified asthma, uncomplicated (principal); F17.200 Nicotine dependence, unspecified, uncomplicated; I10 Essential (primary) hypertension; Z90.89 Acquired absence of other organs
CPT/HCPCS: 94640; 96372; 99282; J1100

== ENCOUNTER 2021-12-26 06:59 | Emergency (ER) | payer OTHER ==
[2021-12-26 07:28] VITALS: BP 162/96
[2021-12-26] MEDS ORDERED: methylPREDNISolone Sod Succinate 125 MG/2 ML INJ IM ONE (07:34)
[2021-12-26] MEDS ORDERED: BENZONATATE 100 MG CAP PO ONE (07:35)
[2021-12-26] MEDS ORDERED: ACETAMINOPHEN W/CODEINE 300-30 MG TAB PO ONE (07:35)
[2021-12-26] MEDS ORDERED: IPRATROPIUM/ALBUTEROL SULFATE 3 ML AMPUL.NEB IH ONE (07:35)
--- NOTE | 2021-12-26 08:08 | Emergency Department Report ---
ED Shortness of Breath HPI - General Chief Complaint: Adult Asthma Stated Complaint: ASTHMA Time Seen by Provider: 12/26/21 07:31 Source: patient Mode of arrival: Ambulatory Limitations: No Limitations - History of Present Illness Initial Comments: 61-year-old black male with a past medical history of asthma and hypertension presents to the emergency department for evaluation of 2 day history of worsening shortness of breath. He states that he has been using his albuterol nebulizer along with the Symbicort inhaler at home but has not had any lasting improvement. He states that shortness of breath gets better initially but then it comes back soon. He states that he has also had a persistent cough with pain to the right side of his chest that is intermittent, nonradiating, and reproducible. He denies nausea, vomiting, dizziness, fever, and diaphoresis. MD Complaint: shortness of breath, "asthma attack" -: Gradual, hour(s) Known History Of: asthma Associated Symptoms: chest pain (Right side only), cough Treatments Prior to Arrival: bronchodilator - Related Data Home Oxygen Therapy: No Previous Rx's Medication Instructions Recorded Last Taken Type Naproxen 500 mg PO Q12H PRN #12 tablet 04/17/20 Unknown Rx Acetaminophen/Codeine [Tylenol 1 tab PO Q6H PRN #6 tab 12/21/20 Unknown Rx /Codeine # 3 tab] Ibuprofen [Motrin 800 MG tab] 800 mg PO Q8HR PRN #20 tablet 12/21/20 Unknown Rx levoFLOXacin [Levaquin TAB] 500 mg PO QDAY #10 tablet 12/21/20 Unknown Rx Albuterol Sulfate [Proventil Hfa] 2 puff IH Q4HR PRN #1 hfa.aer.ad 01/04/21 Unknown Rx predniSONE [Deltasone] 50 mg PO QDAY #5 tab 01/04/21 Unknown Rx Albuterol Mdi (or & Nicu Only) 2 puff IH QID PRN #8.5 gram 08/17/21 Unknown Rx [ProAir HFA Inhaler] Budesonide/Formoterol Fumarate 10.2 gm IH BID #1 unit 08/17/21 Unknown Rx [Symbicort 160-4.5 Mcg Inhaler] predniSONE [Deltasone] 40 mg PO QDAY 5 Days #10 tab 08/17/21 Unknown Rx Albuterol Mdi (or & Nicu Only) 2 puff IH QID PRN #1 inhalation 11/01/21 Unknown Rx [ProAir HFA Inhaler] Budesonide/Formoterol Fumarate 10.2 gm IH BID #1 11/01/21 Unknown Rx [Symbicort 160-4.5 Mcg Inhaler] Prednisone [predniSONE 10 mg 10 mg PO .TAPER #1 tab.ds.pk 11/01/21 Unknown Rx (6-Day Pack, 21 Tabs)] amLODIPine [Norvasc] 5 mg PO DAILY #30 tab 11/01/21 Unknown Rx Albuterol Mdi (or & Nicu Only) 2 puff IH QID PRN #8.5 gram 11/17/21 Unknown Rx [ProAir HFA Inhaler] predniSONE [Deltasone] 40 mg PO QDAY 5 Days #10 tab 11/17/21 Unknown Rx Benzonatate [Tessalon Perles] 100 mg PO Q8HR PRN #30 cap 12/26/21 Unknown Rx Prednisone [predniSONE 10 mg 10 mg PO .TAPER #1 pack 12/26/21 Unknown Rx (6-Day Pack, 21 Tabs)] guaiFENesin/CODEINE [Robitussin AC] 10 ml PO TID PRN #120 ml 12/26/21 Unknown Rx Allergies Allergy/AdvReac Type Severity Reaction Status Date / Time No Known Allergies Allergy Verified 12/26/21 07:28 ED Review of Systems ROS: Stated complaint: ASTHMA Other details as noted in HPI Comment: All other systems reviewed and negative Constitutional: denies: chills, fever, weakness Eyes: denies: vision change ENT: congestion Respiratory: cough, shortness of breath, SOB with exertion, SOB at rest, wheezing Cardiovascular: chest pain. denies: palpitations, dyspnea on exertion, orthopnea, edema, syncope, paroxysmal nocturnal dyspnea Gastrointestinal: denies: abdominal pain, nausea, vomiting Genitourinary: denies: urgency, dysuria Musculoskeletal: denies: back pain Skin: denies: rash, lesions Neurological: denies: headache, weakness Psychiatric: denies: anxiety, depression ED Past Medical Hx - Past Medical History Hx Hypertension: Yes Hx Asthma: Yes - Surgical History Hx Appendectomy: Yes - Social History Smoking Status: Current Some Day Smoker Substance Use Type: Alcohol - Medications Home Medications: Home Medications Medication Instructions Recorded Confirmed Last Taken Type Naproxen 500 mg PO Q12H PRN #12 tablet 04/17/20 Unknown Rx Acetaminophen/Codeine [Tylenol 1 tab PO Q6H PRN #6 tab 12/21/20 Unknown Rx /Codeine # 3 tab] Ibuprofen [Motrin 800 MG tab] 800 mg PO Q8HR PRN #20 tablet 12/21/20 Unknown Rx levoFLOXacin [Levaquin TAB] 500 mg PO QDAY #10 tablet 12/21/20 Unknown Rx Albuterol Sulfate [Proventil Hfa] 2 puff IH Q4HR PRN #1 hfa.aer.ad 01/04/21 Unknown Rx predniSONE [Deltasone] 50 mg PO QDAY #5 tab 01/04/21 Unknown Rx Albuterol Mdi (or & Nicu Only) 2 puff IH QID PRN #8.5 gram 08/17/21 Unknown Rx [ProAir HFA Inhaler] Budesonide/Formoterol Fumarate 10.2 gm IH BID #1 unit 08/17/21 Unknown Rx [Symbicort 160-4.5 Mcg Inhaler] predniSONE [Deltasone] 40 mg PO QDAY 5 Days #10 tab 08/17/21 Unknown Rx Albuterol Mdi (or & Nicu Only) 2 puff IH QID PRN #1 inhalation 11/01/21 Unknown Rx [ProAir HFA Inhaler] Budesonide/Formoterol Fumarate 10.2 gm IH BID #1 11/01/21 Unknown Rx [Symbicort 160-4.5 Mcg Inhaler] Prednisone [predniSONE 10 mg 10 mg PO .TAPER #1 tab.ds.pk 11/01/21 Unknown Rx (6-Day Pack, 21 Tabs)] amLODIPine [Norvasc] 5 mg PO DAILY #30 tab 11/01/21 Unknown Rx Albuterol Mdi (or & Nicu Only) 2 puff IH QID PRN #8.5 gram 11/17/21 Unknown Rx [ProAir HFA Inhaler] predniSONE [Deltasone] 40 mg PO QDAY 5 Days #10 tab 11/17/21 Unknown Rx Benzonatate [Tessalon Perles] 100 mg PO Q8HR PRN #30 cap 12/26/21 Unknown Rx Prednisone [predniSONE 10 mg 10 mg PO .TAPER #1 pack 12/26/21 Unknown Rx (6-Day Pack, 21 Tabs)] guaiFENesin/CODEINE [Robitussin AC] 10 ml PO TID PRN #120 ml 12/26/21 Unknown Rx ED Physical Exam - General Limitations: No Limitations General appearance: alert, in no apparent distress - Head Head exam: Present: atraumatic, normocephalic - Eye Eye exam: Present: normal appearance. Absent: scleral icterus, conjunctival injection, periorbital swelling, periorbital tenderness - ENT ENT exam: Present: normal exam, normal orophraynx - Neck Neck exam: Present: normal inspection, full ROM. Absent: tenderness, lymphadenopathy - Respiratory Respiratory exam: Present: wheezes, chest wall tenderness, other (Able to speak in complete sentences). Absent: respiratory distress, rales, rhonchi, stridor, accessory muscle use - Cardiovascular Cardiovascular Exam: Present: regular rate, normal heart sounds - GI/Abdominal GI/Abdominal exam: Present: soft, normal bowel sounds. Absent: distended, tenderness, guarding, rebound, rigid - Extremities Exam Extremities exam: Present: normal inspection, normal capillary refill. Absent: pedal edema, joint swelling, calf tenderness - Back Exam Back exam: Present: normal inspection. Absent: CVA tenderness (R), CVA tenderness (L) - Neurological Exam Neurological exam: Present: alert, oriented X3, CN II-XII intact, normal gait - Psychiatric Psychiatric exam: Present: normal affect, normal mood - Skin Skin exam: Present: warm, dry, intact, normal color ED Course Vital Signs 12/26/21 07:25 Temperature 97.8 F Pulse Rate 90 Respiratory 20 Rate Blood Pressure 162/96 [Right] O2 Sat by Pulse 92 Oximetry - Reevaluation(s) Reevaluation #1: 12/26/21 09:11 Wheezing mostly resolved, and patient states that he feels much better. Patient resting comfortably dozing on bed. ED Medical Decision Making - Radiology Data Radiology results: report reviewed, image reviewed - Medical Decision Making 61-year-old black male with a past medical history of asthma and hypertension presents to the emergency department for evaluation of 2 day history of worsening shortness of breath. He states that he has been using his albuterol nebulizer along with the Symbicort inhaler at home but has not had any lasting improvement. He states that shortness of breath gets better initially but then it comes back soon. He states that he has also had a persistent cough with pain to the right side of his chest that is intermittent, nonradiating, and reproducible. He denies nausea, vomiting, dizziness, fever, and diaphoresis. Chest x-ray without any acute abnormalities noted. Shortness of breath is mostly resolved and right-sided chest pain totally resolved after medications and DuoNeb. Patient will be discharged home with steroid Dosepak, Tessalon Perles, and Robitussin-AC to use as directed. He states that he already has several refills of his inhaler at home. He is advised to take medications as prescribed and follow-up with his primary care provider for worsening symptoms and return to the emergency department as needed. He verbalizes understanding of and agreement with plan of care. Critical care attestation.: If time is entered above; I have spent that time in minutes in the direct care of this critically ill patient, excluding procedure time. ED Disposition Clinical Impression: Asthma Qualifiers: Asthma severity: mild Asthma persistence: intermittent Asthma complication type: with acute exacerbation Qualified Code(s): J45.21 - Mild intermittent asthma with (acute) exacerbation Disposition: 01 HOME / SELF CARE / HOMELESS Is pt being admited?: No Does the pt Need Aspirin: No Condition: Stable Instructions: Asthma (ED), Asthma, Adult, [id number], Asthma Attack Prevention, Adult Additional Instructions: Take medications as prescribed. Follow-up with your primary care provider or lung doctor for worsening symptoms. Return to the emergency department as ne eded. Prescriptions: Prednisone [predniSONE 10 mg (6-Day Pack, 21 Tabs)] 10 mg PO .TAPER #1 pack guaiFENesin/CODEINE [Robitussin AC] 10 ml PO TID PRN #120 ml PRN Reason: cough Benzonatate [Tessalon Perles] 100 mg PO Q8HR PRN #30 cap PRN Reason: Cough Referrals: GEOVANY LEE MD [Primary Care Provider] - 3-5 Days MANFRED MORALES MD [Staff Physician] - 3-5 Days Forms: Work/School Release Form(ED) Time of Disposition: 09:17
--- NOTE | 2021-12-26 08:32 | XRay Report ---
CHEST 2 VIEWS INDICATION / CLINICAL INFORMATION: sob. COMPARISON: 11/01/2021 FINDINGS: SUPPORT DEVICES: None. HEART / MEDIASTINUM: No significant abnormality. LUNGS / PLEURA: No significant pulmonary or pleural abnormality. No pneumothorax. ADDITIONAL FINDINGS: No significant additional findings. IMPRESSION: 1. No acute findings. Signer Name: Jeremy Foote DO Signed: 12/26/2021 8:27 AM Workstation Name: [id number]
== END 2021-12-26 09:54 | disposition home or self-care (01) ==
LOC: ED 06:59
DX: J45.901 Unspecified asthma with (acute) exacerbation (principal); F17.200 Nicotine dependence, unspecified, uncomplicated; F10.20 Alcohol dependence, uncomplicated; J45.909 Unspecified asthma, uncomplicated
CPT/HCPCS: 71046; 94640; 96372; 99283; J2930; 94644

== ENCOUNTER 2022-02-04 04:37 | Emergency (ER) | payer OTHER ==
[2022-02-04] MEDS ORDERED: IPRATROPIUM 0.02% NEBU 2.5 ML IH ONE ×2 (05:00→05:04)
[2022-02-04] MEDS ORDERED: ALBUTEROL 2.5 MG/3 ML NEBU IH ONE ×2 (05:00→05:04)
[2022-02-04] MEDS ORDERED: dexAMETHasone 4 MG/ML VIAL IM ONE (05:33)
--- NOTE | 2022-02-04 05:55 | Event Note ---
Date: 02/04/22 61 years old with asthma acting up, reports ran out of med today , SOB without fever or chest pain or fever ordered rt and steridos and x ray
--- NOTE | 2022-02-04 06:02 | XRay Report ---
CHEST 1 VIEW INDICATION / CLINICAL INFORMATION: Dyspnea. FINDINGS: SUPPORT DEVICES: None. HEART / MEDIASTINUM: No significant abnormality. LUNGS / PLEURA: No significant pulmonary or pleural abnormality. No pneumothorax. ADDITIONAL FINDINGS: No significant additional findings. IMPRESSION: 1. No acute findings. Signer Name: Jean Sewell MD Signed: 02/04/2022 5:57 AM Workstation Name: [email or web address]
--- NOTE | 2022-02-04 07:19 | Emergency Department Report ---
ED General Adult HPI - General Chief complaint: Dyspnea/Respdistress Stated complaint: ASTHMA ATTACK Time Seen by Provider: 02/04/22 07:05 Source: patient, RN notes reviewed, old records reviewed Mode of arrival: Ambulatory Limitations: No Limitations - History of Present Illness Initial comments: The patient was evaluated in the emergency department for symptoms described in the history of present illness. He/she was evaluated in the context of the global COVID-19 pandemic, which necessitated consideration that the patient might be at risk for infection with the virus that causes COVID-19. Institutional protocols and algorithms that pertain to the evaluation of patients at risk for COVID-19 are in a state of rapid change based on information released by regulatory bodies including the CDC and federal and state organizations. These policies and algorithms were followed during the patient's care in the emergency department. Please note that these policies, procedures and recommendations changed on a rapid basis. This is a pleasant and cooperative 61-year-old gentleman with a history of tobacco use, and asthma/reactive airways disease, who recently relocated [place] He presents to the ER today with a complaint of painless cough, wheezing and shortness of breath He was treated empirically with albuterol, Atrovent, and steroids prior to my personal evaluation. He denies headache, neck pain, chest pain, abdominal pain, nausea, vomiting, diarrhea. He denies travel, surgery, immobilization, DVT and pulmonary embolism risk factors. He feels markedly improved, and endorses readiness for discharge. His symptoms have been going on for couple days. He is COVID-19 vaccinated, and denies loss of taste and smell -: Gradual, days(s) Severity scale (0 -10): 0 Improves with: medication, rest Worsens with: movement Associated Symptoms: denies other symptoms - Related Data Previous Rx's Medication Instructions Recorded Last Taken Type Ibuprofen [Motrin 800 MG tab] 800 mg PO Q8HR PRN #20 tablet 12/21/20 Unknown Rx Albuterol Sulfate [Proventil Hfa] 2 puff IH Q4HR PRN #1 hfa.aer.ad 01/04/21 Unknown Rx predniSONE [Deltasone] 50 mg PO QDAY #5 tab 01/04/21 Unknown Rx Albuterol Mdi (or & Nicu Only) 2 puff IH QID PRN #1 inhalation 11/01/21 Unknown Rx [ProAir HFA Inhaler] Budesonide/Formoterol Fumarate 10.2 gm IH BID #1 11/01/21 Unknown Rx [Symbicort 160-4.5 Mcg Inhaler] Prednisone [predniSONE 10 mg 10 mg PO .TAPER #1 tab.ds.pk 11/01/21 Unknown Rx (6-Day Pack, 21 Tabs)] Albuterol Mdi (or & Nicu Only) 2 puff IH QID PRN #8.5 gram 11/17/21 Unknown Rx [ProAir HFA Inhaler] predniSONE [Deltasone] 40 mg PO QDAY 5 Days #10 tab 11/17/21 Unknown Rx Prednisone [predniSONE 10 mg 10 mg PO .TAPER #1 pack 12/26/21 Unknown Rx (6-Day Pack, 21 Tabs)] Albuterol Mdi (or & Nicu Only) 2 puff IH QID PRN #8.5 gram 02/04/22 Unknown Rx [ProAir HFA Inhaler] Albuterol Sulfate [Albuterol 0.63% 0.63 mg IH Q4HR PRN #2 ml 02/04/22 Unknown Rx NEBS] Budesonide/Formoterol Fumarate 10.2 gm IH BID #1 unit 02/04/22 Unknown Rx [Symbicort 160-4.5 Mcg Inhaler] Cetirizine HCl [Zyrtec 10mg tab] 10 mg PO QDAY #30 tablet 02/04/22 Unknown Rx Nicotine Polacrilex [Nicotine Gum] 4 mg BC PRN #1 pack 02/04/22 Unknown Rx amLODIPine 5 mg PO DAILY #30 tab 02/04/22 Unknown Rx predniSONE [Deltasone] 40 mg PO QDAY 5 Days #10 tab 02/04/22 Unknown Rx Allergies Allergy/AdvReac Type Severity Reaction Status Date / Time No Known Allergies Allergy Verified 12/26/21 07:28 ED Review of Systems ROS: Stated complaint: ASTHMA ATTACK Other details as noted in HPI Comment: All other systems reviewed and negative ENT: congestion Respiratory: cough, shortness of breath, wheezing Cardiovascular: denies: chest pain Gastrointestinal: denies: abdominal pain ED Past Medical Hx - Past Medical History Hx Hypertension: Yes Hx Asthma: Yes - Surgical History Hx Appendectomy: Yes - Social History Smoking Status: Unknown if ever smoked - Medications Home Medications: Home Medications Medication Instructions Recorded Confirmed Last Taken Type Ibuprofen [Motrin 800 MG tab] 800 mg PO Q8HR PRN #20 tablet 12/21/20 Unknown Rx Albuterol Sulfate [Proventil Hfa] 2 puff IH Q4HR PRN #1 hfa.aer.ad 01/04/21 Unknown Rx predniSONE [Deltasone] 50 mg PO QDAY #5 tab 01/04/21 Unknown Rx Albuterol Mdi (or & Nicu Only) 2 puff IH QID PRN #1 inhalation 11/01/21 Unknown Rx [ProAir HFA Inhaler] Budesonide/Formoterol Fumarate 10.2 gm IH BID #1 11/01/21 Unknown Rx [Symbicort 160-4.5 Mcg Inhaler] Prednisone [predniSONE 10 mg 10 mg PO .TAPER #1 tab.ds.pk 11/01/21 Unknown Rx (6-Day Pack, 21 Tabs)] Albuterol Mdi (or & Nicu Only) 2 puff IH QID PRN #8.5 gram 11/17/21 Unknown Rx [ProAir HFA Inhaler] predniSONE [Deltasone] 40 mg PO QDAY 5 Days #10 tab 11/17/21 Unknown Rx Prednisone [predniSONE 10 mg 10 mg PO .TAPER #1 pack 12/26/21 Unknown Rx (6-Day Pack, 21 Tabs)] Albuterol Mdi (or & Nicu Only) 2 puff IH QID PRN #8.5 gram 02/04/22 Unknown Rx [ProAir HFA Inhaler] Albuterol Sulfate [Albuterol 0.63% 0.63 mg IH Q4HR PRN #2 ml 02/04/22 Unknown Rx NEBS] Budesonide/Formoterol Fumarate 10.2 gm IH BID #1 unit 02/04/22 Unknown Rx [Symbicort 160-4.5 Mcg Inhaler] Cetirizine HCl [Zyrtec 10mg tab] 10 mg PO QDAY #30 tablet 02/04/22 Unknown Rx Nicotine Polacrilex [Nicotine Gum] 4 mg BC PRN #1 pack 02/04/22 Unknown Rx amLODIPine 5 mg PO DAILY #30 tab 02/04/22 Unknown Rx predniSONE [Deltasone] 40 mg PO QDAY 5 Days #10 tab 02/04/22 Unknown Rx ED Physical Exam - General Limitations: No Limitations General appearance: alert, in no apparent distress - Head Head exam: Present: atraumatic, normocephalic - Eye Eye exam: Present: normal appearance, EOMI. Absent: nystagmus - ENT ENT exam: Present: normal exam, normal orophraynx, mucous membranes moist, normal external ear exam - Neck Neck exam: Present: normal inspection, full ROM. Absent: tenderness, meningismus - Respiratory Respiratory exam: Present: normal lung sounds bilaterally. Absent: respiratory distress, wheezes, rales, rhonchi, stridor, decreased breath sounds - Cardiovascular Cardiovascular Exam: Present: regular rate, normal rhythm, normal heart sounds. Absent: bradycardia, tachycardia, irregular rhythm, systolic murmur, diastolic murmur, rubs, gallop - GI/Abdominal GI/Abdominal exam: Present: soft. Absent: distended, tenderness, guarding, rebound, rigid, pulsatile mass - Rectal Rectal exam: Present: deferred - Extremities Exam Extremities exam: Present: normal inspection, full ROM, normal capillary refill, other (2+ pulses noted in the bilateral upper and lower extremities. There is no palpable cord. negative Homans sign. Muscular compartments are soft. The pelvis is stable.). Absent: pedal edema, calf tenderness - Back Exam Back exam: Present: normal inspection, full ROM. Absent: tenderness, CVA tenderness (R), CVA tenderness (L), paraspinal tenderness, vertebral tenderness - Neurological Exam Neurological exam: Present: alert, oriented X3, normal gait, other (No facial droop. Tongue midline. Extraocular movements intact bilaterally. Facial sensation intact to light touch in V1, V2, V3 distribution bilaterally. 5 and a 5 strength in 4 extremities. Sensation intact to light touch in 4 extremities.). Absent: motor sensory deficit - Psychiatric Psychiatric exam: Present: normal affect, normal mood - Skin Skin exam: Present: warm, dry, intact, normal color. Absent: rash ED Course Vital Signs 02/04/22 02/04/22 02/04/22 04:43 04:46 05:26 Temperature 98.9 F 98.6 F Pulse Rate 90 87 Pulse Rate [ Bilateral Throughout] Respiratory 20 18 30 H Rate Respiratory Rate [Bilateral Throughout] Blood Pressure 161/90 Blood Pressure 161/90 [Right] O2 Sat by Pulse 97 98 86 Oximetry 02/04/22 02/04/22 06:20 07:43 Temperature Pulse Rate 88 Pulse Rate [ 85 Bilateral Throughout] Respiratory 15 Rate Respiratory 24 Rate [Bilateral Throughout] Blood Pressure Blood Pressure 143/87 [Right] O2 Sat by Pulse 99 Oximetry ED Medical Decision Making - Lab Data Vital Signs 02/04/22 02/04/22 02/04/22 04:43 04:46 05:26 Temperature 98.9 F 98.6 F Pulse Rate 90 87 Pulse Rate [ Bilateral Throughout] Respiratory 20 18 30 H Rate Respiratory Rate [Bilateral Throughout] Blood Pressure 161/90 Blood Pressure 161/90 [Right] O2 Sat by Pulse 97 98 86 Oximetry 02/04/22 06:20 Temperature Pulse Rate Pulse Rate [ 85 Bilateral Throughout] Respiratory Rate Respiratory 24 Rate [Bilateral Throughout] Blood Pressure Blood Pressure [Right] O2 Sat by Pulse Oximetry - Radiology Data Radiology results: pending, report reviewed, image reviewed CHEST 1 VIEW INDICATION / CLINICAL INFORMATION: Dyspnea. FINDINGS: SUPPORT DEVICES: None. HEART / MEDIASTINUM: No significant abnormality. LUNGS / PLEURA: No significant pulmonary or pleural abnormality. No pneumothorax. ADDITIONAL FINDINGS: No significant additional findings. IMPRESSION: 1. No acute findings. Signer Name: Jean Sewell MD Signed: 02/04/2022 4:57 AM Workstation Name: [id number] - Medical Decision Making Differential diagnosis, include but not limited to: Bronchitis, asthma, reactive airways disease Assessment and plan: 61-year-old gentleman, who relocated to [place] from the [facility] about a year ago. He has a known history of asthma and reactive airways disease. Secondary to insurance issues, having some difficulty obtaining outpatient primary care, as he reports his insurance is active in [place], and [place]. He denies DVT and pulmonary embolism risk factors, and is low risk by Wells criteria for pulmonary embolism. He is treated with albuterol, and steroids prior to my personal evaluation. When I going to evaluate the patient, he is sleeping comfortably on his left hand side, in no acute respiratory distress whatsoever. Respiratory rate 12 to 15 breaths/min. Lung sounds clear. Physical examination benign and unremarkable. Patient endorses readiness for discharge. Extensive discussion had with patient regarding discharge instructions, including instructions to go on to healthcare.gov, and seek out additional Medicaid expansion insurance. Also discussed tobacco cessation. At this point in time, the patient is pleasant and cooperative, endorses resolution of symptoms, and readiness for discharge. All questions are answered. Return precautions are reviewed. Critical care attestation.: If time is entered above; I have spent that time in minutes in the direct care of this critically ill patient, excluding procedure time. ED Disposition Clinical Impression: Reactive airway disease, Encounter for tobacco use cessation counseling, Elevated blood pressure reading, Medication refill Disposition: HOME / SELF CARE / HOMELESS Is pt being admited?: No Does the pt Need Aspirin: No Condition: Good Instructions: Steps to Quit Smoking, [id number], Asthma, Adult Additional Instructions: Please take the medications as needed and directed. Discontinue tobacco consumption. Patient is recommended to go into the [place] website, and inquire as to obtain additional insurance through the Medicaid expansion. We also recommend that the patient follow-up with a primary care doctor or mirror finishing machine operator within the next 2 weeks. [facility] is a local primary care clinic. Dr. Conde is a local outside event sales specialist. Please return to the emergency room right away with new pain, worsened pain, migration of pain, projectile vomiting, change in mental status, confusion, inability tolerate liquid feeds, new, worsened or different symptoms not present on the initial emergency room evaluation Prescriptions: Albuterol Sulfate [Albuterol 0.63% NEBS] 0.63 mg IH Q4HR PRN #2 ml PRN Reason: Wheezing amLODIPine 5 mg PO DAILY #30 tab predniSONE [Deltasone] 40 mg PO QDAY 5 Days #10 tab Nicotine Polacrilex [Nicotine Gum] 4 mg BC PRN #1 pack Albuterol Mdi (or & Nicu Only) [ProAir HFA Inhaler] 2 puff IH QID PRN #8.5 gram PRN Reason: Shortness Of Breath Budesonide/Formoterol Fumarate [Symbicort 160-4.5 Mcg Inhaler] 10.2 gm IH BID #1 unit Cetirizine HCl [Zyrtec 10mg tab] 10 mg PO QDAY #30 tablet Referrals: [facility] [Provider Group] - as needed ARON YORK MD [Staff Physician] - as needed Forms: Work/School Release Form(ED)
[2022-02-04 08:02] VITALS: BP 143/87
== END 2022-02-04 08:10 | disposition home or self-care (01) ==
LOC: ED 04:37
DX: J45.909 Unspecified asthma, uncomplicated (principal); I10 Essential (primary) hypertension; Z76.0 Encounter for issue of repeat prescription; Z71.6 Tobacco abuse counseling
CPT/HCPCS: 71045; 94644; 99283; J1100